=== PATIENT | female | born 1955 | race African-American/Black ===

== ENCOUNTER 2019-10-07 09:02 | Emergency (ER) | payer BC, OTHER ==
[~2019-10-07] VITALS: Ht 154.9 cm; Wt 104.3 kg
[2019-10-07 10:37] LABS: ABSOLUTE NEUTROPHILS 6.8 thou/uL (1.4-8.2); BASOPHILS 0.4 % (0.0-2.0); EOSINOPHILS 0.3 % (0.0-3.0); HEMATOCRIT 44.2 % (37.0-47.0); HEMOGLOBIN 14.9 gm/dL (12.0-15.0); LYMPHOCYTES 16.8 % (24.0-44.0); MCH 31.5 pg (26.0-34.0); MCHC 33.8 g/dL (28.0-37.0); MCV 93.1 fL (80.0-100.0); MONOCYTES 5.1 % (1.0-8.0); PLATELET COUNT 240 thou/uL (150-400); POLYS 77.4 % (36.0-66.0); RBC 4.74 mil/uL (4.20-5.00); WBC 8.8 thou/uL (4.0-11.0)
[2019-10-07 10:55] LABS: ANION GAP 7 mmol/L (7-16); BUN 12 mg/dL (7-18); CALCIUM 10.6 mg/dL (8.5-10.1); CHLORIDE 100 mmol/L (98-107); CO2 29 mmol/L (21-32); CREATININE 0.8 mg/dL (0.6-1.0); GLUCOSE 100 mg/dL (74-106); POTASSIUM 3.2 mmol/L (3.5-5.1); SODIUM 136 mmol/L (136-145)
[2019-10-07 11:04] LABS: TROPONIN-I <0.06 ng/mL (<0.06)
[2019-10-07] MEDS ORDERED: KLOR-CON 1010 MEQ PO (11:14)
--- NOTE | 2019-10-07 11:24 | EKG ---
[facility] [place] [address] ELECTROCARDIOGRAM REPORT Name: BARONKODY Room #: REG [facility]#: [id number] Admission: 10/07/19 Attend Phys: Discharge: Date of : 51 Report #: [id number] THIS REPORT FOR: cc: Chrissy Dixon MD, Teresa MD Couchonnal,Edwardo Singh MD ~ THIS REPORT FOR: //name// [facility] ED Test Date: 2019-10-07 Test Time: 10:29:02 Pat Name: KODY BARON Department: Room: Gender: Communications Designer: : 1955 Requested By: Ken Hurd Order Number: [id number] MD: Edwardo Patrick Measurements Intervals [place] Rate: 78 P: 59 ID: 164 QRS: 71 QRSD: 104 T: 16 QT: 387 QTc: 441 Interpretive Statements Sinus rhythm Probable left atrial enlargement Baseline wander in lead(s) V4 No previous ECG available for comparison Electronically Signed On 10-07-2019 11:23:07 CDT by Edwardo Patrick [email or web address] <ELECTRONICALLY SIGNED> By: Edwardo Patrick MD 10/07/19 1123 1029 1029 Edwardo Patrick MD /STEPHANIE
[2019-10-07 11:34] VITALS: BP 139/70
== END 2019-10-07 11:55 | disposition home or self-care (01) ==
LOC: ER 09:02
PROVIDERS: Emergency Medicine
DX: R20.2 Paresthesia of skin (principal)

== ENCOUNTER 2020-10-19 09:16 | Emergency (ER) | payer OTHER ==
[~2020-10-19] VITALS: Ht 165.1 cm; Wt 102.1 kg
[~2020-10-19 09:16] MED LIST: KLOR-CON 1010 MEQ PO
[2020-10-19] MEDS ORDERED: HYDROCHLOROTHIA25 M1 PO (09:47)
[2020-10-19] MEDS ORDERED: AMLODIPINE BESY10 MG PO (09:48)
[2020-10-19 11:06] VITALS: BP 153/79
--- NOTE | 2020-10-19 17:36 | EKG ---
[place] [address] [facility] [place] [address] ELECTROCARDIOGRAM REPORT Name: KODY BARON Room #: DEP Rissa#: [id number] Admission: 10/19/20 Attend Phys: Discharge: 10/19/20 Date of : 51 Report #: [id number] [facility] ED Test Date: 2020-10-19 Test Time: 09:39:48 Pat Name: KODY BARON Department: Room: Gender: F Tourist Escort: JOHN : 1955 Requested By: Nicole Jorge Order Number: [id number] MD: Stone Hebert Measurements Intervals [place] Rate: 87 P: 60 [place]: 149 QRS: 74 QRSD: 99 T: 27 QT: 377 QTc: 454 Interpretive Statements Sinus rhythm No significant abnormality Compared to ECG 10/07/2019 10:29:02 No significant changes Electronically Signed On 10-19-2020 17:35:55 CDT by Stone Hebert [email or web address] <ELECTRONICALLY SIGNED> By: Stone Hebert MD, [facility] 10/19/20 1735 0939 0939 Stone Hebert MD, FACC /EPI
== END 2020-10-19 11:08 | disposition home or self-care (01) ==
LOC: ER 09:16
DX: I10 Essential (primary) hypertension (principal); Z79.899 Other long term (current) drug therapy

== ENCOUNTER 2021-05-22 19:45 | Emergency (ER) | payer OTHER ==
[~2021-05-22] VITALS: Ht 154.9 cm; Wt 104.3 kg
[~2021-05-22 19:45] MED LIST changes: +AMLODIPINE BESY10 MG PO; +HYDROCHLOROTHIA25 M1 PO
[2021-05-22] MEDS ORDERED: COZAAR 25 MG TA25 MG PO (19:55)
[2021-05-22 20:36] LABS: ABSOLUTE NEUTROPHILS 8.5 thou/uL (1.4-8.2); BASOPHILS 0.9 % (0.0-2.0); EOSINOPHILS 0.6 % (0.0-3.0); HEMATOCRIT 44.3 % (37.0-47.0); HEMOGLOBIN 14.8 gm/dL (12.0-15.0); MCH 31.4 pg (26.0-34.0); MCHC 33.3 g/dL (28.0-37.0); MCV 94.2 fL (80.0-100.0); MONOCYTES 5.2 % (1.0-8.0); PLATELET COUNT 201 thou/uL (150-400); POLYS 76.3 % (36.0-66.0); RDW 14.5 % (10.5-14.5); WBC 11.2 thou/uL (4.0-11.0)
[2021-05-22 22:11] LABS: CALCIUM 9.9 mg/dL (8.5-10.1); CREATININE 0.7 mg/dL (0.6-1.0); POTASSIUM 3.2 mmol/L (3.5-5.1)
[2021-05-22] MEDS ORDERED: KLOR-CON M2020 MEQ PO (22:32)
[2021-05-22] MEDS ORDERED: LASIX 40 MG TAB40 MG PO (22:32)
[2021-05-22 23:17] VITALS: BP 164/78
--- NOTE | 2021-05-23 07:49 | EKG ---
[place] [address] [facility] [place] [address] ELECTROCARDIOGRAM REPORT Name: Yasmin BARONVETTE [id number] Admission: 05/22/21 Attend Phys: Discharge: 05/22/21 Date of : 51 Report #: [id number] [facility] ED Test Date: 2021-05-22 Test Time: 20:39:14 Pat Name: KODY BARON Department: Room: Gender: F Senior Tax Specialist: noemy : 1955 Requested By: Dain Nogueira Order Number: [id number] MD: Onur Nolasco Measurements Intervals [place] Rate: 97 P: 62 [place]: 157 QRS: 79 QRSD: 102 T: 3 QT: 368 QTc: 468 Interpretive Statements Sinus rhythm Probable left atrial enlargement Probable anteroseptal infarct, old Compared to ECG 10/19/2020 09:39:48 Myocardial infarct finding now present Electronically Signed On 05-23-2021 7:49:35 MANUFACTURING ASSEMBLER by Onur Nolasco [email or web address] <ELECTRONICALLY SIGNED> By: Onur Nolasco MD, [facility] 05/23/2149 38 38 Onur Nolasco MD, FACC /EPI
== END 2021-05-22 23:10 | disposition home or self-care (01) ==
LOC: ER 19:45
PROVIDERS: Nurse Practitioner
DX: I11.0 Hypertensive heart disease with heart failure (principal); E87.6 Hypokalemia; Z90.710 Acquired absence of both cervix and uterus; Z98.890 Other specified postprocedural states; Z88.8 Allergy status to other drugs, medicaments and biological substances

== ENCOUNTER → 2021-06-01 | Outpatient (CLI) | payer OTHER ==
[~2021-06-01] MED LIST changes: +COZAAR 25 MG TA25 MG PO; +KLOR-CON M2020 MEQ PO; +LASIX 40 MG TAB40 MG PO
== END ==
LOC: SJCVC 10:33
PROVIDERS: ATTEND Internal Medicine Cardiovascular Disease
DX: R07.9 Chest pain, unspecified (principal); R06.00 Dyspnea, unspecified; I10 Essential (primary) hypertension; Z88.8 Allergy status to other drugs, medicaments and biological substances; Z79.899 Other long term (current) drug therapy; Z72.89 Other problems related to lifestyle

== ENCOUNTER → 2021-06-20 | Outpatient (CLI) | payer OTHER | LOC: SJCVCIMAG 07:42 | PROVIDERS: ATTEND Internal Medicine Cardiovascular Disease | DX: I05.9 Rheumatic mitral valve disease, unspecified (principal); R00.0 Tachycardia, unspecified; R07.9 Chest pain, unspecified; R06.00 Dyspnea, unspecified; I10 Essential (primary) hypertension; Z79.899 Other long term (current) drug therapy; Z88.8 Allergy status to other drugs, medicaments and biological substances ==

== ENCOUNTER → 2021-07-05 | Outpatient (CLI) | payer OTHER ==
[~2021-07-05] MED LIST changes: +BENICAR40 MG PO
--- NOTE | 2021-07-05 10:14 | NUR ---
LATE ENTRY- 09:55 PT TO CV RM 1 A/OX3 WITH NO C/O. BAND IN PLACE WITH NO HEMATOMA OR BLEEDING NOTED.
--- NOTE | 2021-07-05 10:43 | NUR ---
PT PER W/C TO RESTROOM. PT HAS NO C/O.
--- NOTE | 2021-07-05 11:35 | NUR ---
PTS SON AT BEDSIDE WT PT. PT A/OX3 WITH NO C/O.
--- NOTE | 2021-07-05 12:50 | CATHLAB ---
[facility] [place] [place] [address] INVASIVE PROCEDURE REPORT Name: KODY BARON Room #: REG JOSH [facility]iel[facility]ette[facility]iel[facility]#: [id number] Admission: 07/05/21 Attend Phys: Jose Thompson MD Discharge: Date of : 51 Report #: [id number] THIS REPORT FOR: cc: Chrissy Dixon MD, Teresa MD Park, Jin S. MD ~ APPROVED REPORT Study performed: 07/05/2021 08:59:35 Patient Details Patient Status: Out-Patient Room #: The patient is a 65 year-old female Event Personnel Jose Thompson Grade Tamper, Diane Miranda RTR Monitor, Deloris Torres RTR, ELAN Scrub, Marika Choudhary RTR ScrubGrant Mitch RN RN, Franklin Hill RN chief digital media officer Performed Art Access - R radial artery Left Heart Cath w/or w/o Coronaries [id number] [facility] Hemostasis with Hemoband 00877 Initial Mod Sed Same Phys/QHP Gr5y [id number] 53734 Mod Sed Same Phys/QHP Ea [id number] Indication Dyspnea, Positive stress test, Chest pain Risk Factors HypercholesterolemiaPhysical Activity, Hypertension Procedure Narrative The Right Wrist^ was infiltrated with 1% Lidocaine subcutaneous anesthesia. A TRANSRADIAL SLENDER 6F GLIDESHEATH KIT #[id number] sheath was inserted into the Right Radial Artery^. Coronary angiography was performed using coronary diagnostic catheters. The right coronary system was accessed and visualized with a JR4 catheter. The left coronary system was accessed and visualized with a JL3.5 catheter. The left ventricle was accessed and visualized with a JR4 catheter. The patient tolerated the procedure well and there were no complications associated with the procedure. Intraoperative Conscious Sedation Sedation start time: 9:22 Case end Time: [facility] [address] [place] [address] INVASIVE PROCEDURE REPORT Name: KODY BARON Room #: REG [facility]#: [id number] Admission: 07/05/21 Attend Phys: Jose Thompson MD Discharge: Date of : 51 Report #: [id number] 9:45 Fentanyl 25 mcg Versed 1 mg Fluoro Time: 5.13 minutes Dose: DAP 6976.50 cGycm2 862 mGy Contrast Type and Amount: Omnipaque 90 ml Coronary Angiography The patient's coronary anatomy is right dominant. Diagnostic Cath Left Main The left main artery is a large-caliber vessel, appears angiographically normal. LAD The LAD is a moderate-sized caliber vessel, traverses the anterior wall and wraps around the apex, terminating in the distal inferior wall. There is a moderate stenosis in the midsegment, 40 to 50%. Diagonal 1 There is a small caliber vessel, patent with no flow-limiting lesions. Circumflex The left circumflex artery is a moderate-sized caliber vessel, patent with no flow-limiting lesions. OM1 This is a moderate-sized caliber vessel, appears angiographically normal. OM2 This is a moderate-sized caliber vessel, appears angiographically normal. Right Coronary The RCA is a dominant vessel with mild disease in the proximal segment, 20%. R PDA This is a small to moderate-sized caliber vessel, patent with no flow-limiting lesions. RPLV This is a small to moderate-sized caliber vessel, patent with no flow-limiting lesions. Left Ventriculography Left Ventriculography was not performed. Ejection Fraction was 60% based off patient's Nuclear Cardiac Stress Test. An LVEDP was measured and there is no gradient across the outflow tract. Hemodynamics The aortic pressure is 128/73 mmHg with a mean of 98 mmHg. The left ventricular pressure is 146/10 mmHg with a mean of mmHg. The left ventricular end diastolic pressure is 25 mmHg. Conclusion 1. There is a moderate stenosis in the mid LAD. 2. There is mild disease in the proximal RCA. [facility] [address] [place] [address] INVASIVE PROCEDURE REPORT Name: KODY BARON Room #: REG [facility]#: [id number] Admission: 07/05/21 Attend Phys: Jose Thompson MD Discharge: Date of : 51 Report #: [id number] 3. There is normal LV systolic function. 4. Recommend risk factor management and guideline directed medical therapy. <ELECTRONICALLY SIGNED> By: Jose Thompson MD 07/05/21 1249 1249 1249 Jose Thompson MD /INF
== END | disposition home or self-care (01) ==
LOC: CATH 07:59
PROVIDERS: ATTEND Internal Medicine Cardiovascular Disease
DX: R07.9 Chest pain, unspecified (principal); R94.39 Abnormal result of other cardiovascular function study; I25.10 Atherosclerotic heart disease of native coronary artery without angina pectoris; R06.00 Dyspnea, unspecified; I11.0 Hypertensive heart disease with heart failure; I50.9 Heart failure, unspecified; E78.00 Pure hypercholesterolemia, unspecified; Z98.890 Other specified postprocedural states; Z79.899 Other long term (current) drug therapy; Z88.8 Allergy status to other drugs, medicaments and biological substances

== ENCOUNTER → 2021-07-19 | Outpatient (CLI) | payer OTHER | LOC: SJCVC 11:27 | PROVIDERS: ATTEND Internal Medicine Cardiovascular Disease | DX: I25.10 Atherosclerotic heart disease of native coronary artery without angina pectoris (principal); I10 Essential (primary) hypertension; E78.00 Pure hypercholesterolemia, unspecified; R06.00 Dyspnea, unspecified; M19.90 Unspecified osteoarthritis, unspecified site; Z95.818 Presence of other cardiac implants and grafts; Z72.89 Other problems related to lifestyle; Z79.82 Long term (current) use of aspirin; Z79.899 Other long term (current) drug therapy; Z88.8 Allergy status to other drugs, medicaments and biological substances ==